=== PATIENT | female | born 1980 | race Caucasian/White ===

== ENCOUNTER 2023-04-16 11:24 | Outpatient (CLI) | payer OTHER, SELFPAY ==
--- NOTE | 2023-04-16 11:30 | CRLHL7_ITS ---
For Patients: As a result of the Century Cures Act, medical imaging exams and procedure reports are released immediately into your electronic medical record. You may view this report before your referring provider. If you have questions, please contact your health care provider. INDICATION: position, placenta location and palpable mass in pelvis. COMPARISON: none TECHNIQUE: Real time reagan scale imaging of the fetus was performed. FINDINGS: Sonographic imaging demonstrates a single living intrauterine gestation. Fetus demonstrates a regular cardiac rate of 139 beats per minute. Fetus has a den breech position. The placenta lies anterior left. Amniotic fluid volume appears normal. Single deepest vertical pocket: 6.5 cm. Multiple uterine fibroids are present measuring 4.2 x 2.3 x 4.1 cm, 9.5 x 8.9 x 8.6 cm and 10.0 x 5.3 x 7.1 cm. Central areas of necrosis/fluid are present. The cervix is not visualized. Patient declined biometrics. IMPRESSION: Multiple uterine fibroids are present measuring up to 10.0 cm. position is den breech. Placenta is left anterior. Dictated by Kobe Bhatt MD @ 04/17/2023 1:16:52 PM (Electronically Signed)
== END 2023-04-16 11:25 | disposition home or self-care (01) ==
LOC: US 11:24
PROVIDERS: PCP Physician Assistant Medical; Visit Provider Advanced Practice Midwife
DX: O34.10 Maternal care for benign tumor of corpus uteri, unspecified trimester (principal); D25.9 Leiomyoma of uterus, unspecified
CPT/HCPCS: 76815

== ENCOUNTER 2023-06-12 14:24 | Outpatient (CLI) | payer OTHER, SELFPAY | END 2023-06-12 14:25 | disposition home or self-care (01) | LOC: NFLDREF 14:26 | PROVIDERS: PCP Physician Assistant Medical; Visit Provider Registered Nurse | DX: Z13.9 Encounter for screening, unspecified (principal); Z34.93 Encounter for supervision of normal pregnancy, unspecified, third trimester; Z3A.33 33 weeks gestation of pregnancy | CPT/HCPCS: 82728 ==

== ENCOUNTER 2023-06-25 14:56 | Outpatient (CLI) | payer OTHER, SELFPAY ==
[2023-06-26 23:10] LABS: Strep B DNA Probe Negative (Negative); Strep B Susceptibility Needed? No
== END 2023-06-25 14:57 | disposition home or self-care (01) ==
LOC: NFLDREF 14:56
PROVIDERS: PCP Physician Assistant Medical; Visit Provider Obstetrics & Gynecology
DX: O09.523 Supervision of elderly multigravida, third trimester (principal); O36.63X0 Maternal care for excessive fetal growth, third trimester, not applicable or unspecified; Z3A.30 30 weeks gestation of pregnancy
CPT/HCPCS: 76816; 76819; 87081; 87653

== ENCOUNTER 2023-07-03 15:20 | Outpatient (CLI) | payer OTHER, SELFPAY | END 2023-07-03 15:21 | disposition home or self-care (01) | PROVIDERS: PCP Physician Assistant Medical; Visit Provider Obstetrics & Gynecology | DX: Z34.93 Encounter for supervision of normal pregnancy, unspecified, third trimester (principal); Z3A.36 36 weeks gestation of pregnancy | CPT/HCPCS: 82570; 84156 ==

== ENCOUNTER 2023-07-31 15:15 | Outpatient (CLI) | payer OTHER, SELFPAY ==
[2023-08-01 12:28] LABS: Strep B DNA Probe Negative (Negative); Strep B Susceptibility Needed? No
== END 2023-07-31 15:16 | disposition home or self-care (01) ==
LOC: NFLDREF 15:15
PROVIDERS: PCP Physician Assistant Medical; Visit Provider Obstetrics & Gynecology
DX: Z34.90 Encounter for supervision of normal pregnancy, unspecified, unspecified trimester (principal)
CPT/HCPCS: 76815; 87081; 87653

== ENCOUNTER 2023-08-03 06:47 | Outpatient (CLI) | payer OTHER, SELFPAY ==
[2023-08-03] VITALS (8 sets, daily range): BP systolic 117; BP diastolic 66; PULSE 64–71; RESP 16; TEMP 36.9; O2SAT 97–100; BMI 28.3
[2023-08-03 08:53] LABS: Basophils Percent Auto 0.1 % (0.0-3.0); Eosinophils Percent Auto 0.1 % (0.0-7.0); Hematocrit 37.1 % (33.0-51.0); Hemoglobin* 12.3 gm/dL (12.0-16.0); Immature Granulocytes Pct Auto 0.3 %; Lymphocytes Percent Auto 12.5 % (20-44); Mean Corpuscular HGB Conc 33 gm/dL (32-36); Mean Corpuscular Hemoglobin 31 pg (26-34); Mean Corpuscular Volume 93 fL (80-100); Monocytes Percent Auto 4.1 % (0.0-11.0); Neutrophils Percent Auto 82.9 % (42.0-72.0); Platelet Count* 171 K/uL (140-440); RDW Coefficient of Variation % 13.9 % (11.5-15.5); Red Blood Count 3.98 m/uL (4.00-5.20); White Blood Count* 12.91 K/uL (4.50-11.00)
[2023-08-03 08:59] LABS: Slide Review Reflex No
--- NOTE | 2023-08-06 10:35 | PC.OBNST ---
NST Note NST Note Start: 08/06/23 10:32 Freq: Status: Active Protocol: Document 08/03/23 10:33 IWONA (Rec: 08/06/23 10:34 IWONA [id number]) NST Note 1 Para (# of births) 0 EDC 07/26/23 Gestational Age In Weeks & Days 41 Weeks & 4 Days High Risk Factors Advanced Maternal Age Patient Presented with Complaint(s) of Contractions/cramping Reactive Yes Appropriate for Gestational Age Yes RN Zayda Peterson RN Date 08/03/23 Reactive Yes Appropriate for Gestational Age Yes BENJI Ferrara RN Date 08/03/23 OB NST charge Yes Complete NST Note via Write Note Yes The provider's electronic signature indicates the NST is reactive/appropriate for gestational age. *Note to provider: If an addendum is required, open the patient's chart and click on the note under the Nurse/Allied Health tab.
== END 2023-08-03 09:16 | disposition home or self-care (01) ==
LOC: OB OUT 06:47 → OB 06:48
PROVIDERS: Obstetrics & Gynecology; PCP Physician Assistant Medical; Visit Provider Obstetrics & Gynecology
DX: Z34.93 Encounter for supervision of normal pregnancy, unspecified, third trimester (principal); O09.523 Supervision of elderly multigravida, third trimester; Z3A.41 41 weeks gestation of pregnancy
CPT/HCPCS: 36415; 59025; 84112; 85025; 86850; 86900; 86901; 99213

== ENCOUNTER 2023-08-03 15:30 | Inpatient (IN) | payer OTHER, SELFPAY ==
[2023-08-03 15:22] VITALS: BP 139/69; PULSE 214; PULSE 77; O2SAT 81
[2023-08-03 15:30] VITALS: PULSE 65; O2SAT 97
--- NOTE | 2023-08-03 15:36 | P.LDBA_ITS ---
Subjective History of Present Illness Time Seen by Provider: 15:36 Date Seen: 08/03/23 Narrative: Krista is being admitted to Labor and Delivery for spontaneous onset of labor. She states that she was awaken from sleep at 1:00 a.m. today with contractions. She was evaluated in triage at 9:00 a.m. and was 4 cm dilated at that time and decided to go home and returned approximately 3:00 p.m. today with more painful contractions associated with nausea and vomiting. She is a 42 year old at 41 weeks 1 day gestation. Her full history and physical was dictated by Dr. Andreea Rodriguez on 07/03/2023. Please see this for details. hemorrhage control plan: Patient desires TXA 1st followed by Fabienne then Pitocin, Cytotec and Hemabate in that order. She has 2 units of blood available. She was type and screen this morning when she was in triage and her blood type is O negative her antibody screen was negative. Spontaneous rupture of membranes took place at approximately 3:00 p.m. just after she arrived on the unit. Specific Issues/Plans Bambi Plans to do directed donation for blood through [facility] - form completed 06/19. 2 units available. Patient needs type and screen on admission. H&P done 07/03/[address] Rodriguez. Patient requests to take home placenta following delivery. Patient aware that she needs to provide her own transport cooler and container. 1. Uterine fibroids * RLQ- 10 x 5.3 x 7.1, lower midline- 9.5 x 8.9 x 8.6, LLQ- 4.2 x 2.3 x 4.1 * Recommended MFM consult and hospital * [facility] recommendation repeat US in 6-8 weeks * Discussed increased risk of malpresentation, C/S for arrest of dilation/descent, possible classical C/S, hysterectomy, midline vertical skin incision and PPH in the setting of fibroids. 2. Rh negative * Declined Rhogam at 28 weeks * Discussed at visit on 05/14/2023. Patient would like more information about RhoGAM, including whether not it contains preservative. She would like an ingredient list, if possible. She is amenable to the injection once she has received this information. * 06/05/23: Patient still considering * 06/12/23: Declining rhogam 3. Breech at 25.4 wks-transverse at Level II US * Repeat US at 36 weeks gestation: Vertex, EFW 3338 g or 7 lb 6 oz (96%), SDP 6.2 cm, BPD 96.7%, HC > 97%, AC > 97%, FL 29%, BPP 8/8, fibroids: 8.5 x 6.7 x 5.9 cm, 7.4 x 3.6 x 6.6 cm, and 4 x 2.1 x 3.3 cm. 4. AMA * Level II US and echo normal * Growth at 32-36 weeks: Patient declines 32-weeks ultrasound * testing starting at 32-34 wks and delivery at 39 weeks per [facility] recommendations. Patient declines antepartum testing. Prefers to do daily kick counts and weekly follow up appointments with doptone assessment of FHR. * Affirmed recommendation for IOL at 39 weeks in the setting of AMA (and additional logistics considerations including increased risk of C/s and PPH with fibroids) on 06/19 - consent form provided for them to review, please reassess at next visit * Declining 39 week IOL at this time, she wishes to at least make it to 40 weeks expectantly. Risk of stillbirth with AMA data again reviewed. She and partner will consider further what end point they would be comfortable with IOL. 5. hgb 11.6, ferritin 6.8 at 34 weeks: rec qod iron supplement 6. Desires direct blood donation * 2 u of pRBC to be prepared * WOULD consent to standard blood products in event of massive hemorrhage OB Labs: ? Blood type: O-, antibody screen negative. ? Hgb: 12.7 ? Platelets: 217 ? Rubella: Immune ? Varicella: Immune RPR: non-reactive ? HBsAg: non-reactive ? Hep C: negative HIV: negative ? UC: negative GC/Chlamydia: negative/negative ? Pap due : negative previously? Genetic screening: declined ? IMAGING: ?No previous imaging OB - Problem Based A/P Additional Plan (1) Uterine fibroids affecting : Status: Acute Plan 1. Type and screen, CBC obtained. 2. Blood type O negative, antibody screen negative 3. Patient is aware of risk of hemorrhage due to uterine fibroids and large for gestational age fetus. 4. GBS negative. 5. Patient gave consent for IV access. OB Exam Physical Exam Vital signs: Pulse BP Pulse Ox 77 139/69 97 08/03/23 15:22 08/03/23 15:22 08/03/23 15:30 Narrative: GENERAL APPEARANCE: Pleasant, , well-groomed woman in no acute distress. VITAL SIGNS: as noted in nursing notes HEAD: Normocephalic, atraumatic. THYROID: no masses, nodularity, tenderness or enlargement. LUNGS: Clear to auscultation bilaterally without wheezes, rales or rhonchi. HEART: Regular rate and rhythm with normal S1 and S2. No gallop, rub or murmur. ABDOMEN: Gravid. Soft, nontender, nondistended, with normal bowels sounds throughout. FUNDAL HEIGHT: [] cm EFM: Baseline 130s. Moderate variability, multiple accelerations. No decelerations. Reactive. Category 1. PRESENTATION: Vertex by Taj's maneuvers and sterile vaginal exam SVE: 7 cm/ 100 %/ +1 to +2/soft/anterior. EXTREMITIES: No cyanosis, clubbing, or edema. No varicosities. NEUROLOGIC: Normal gait and balance. Normal deep tendon reflexes at bilateral patella 2+/2, equal without clonus. PSYCHIATRIC: alert and oriented x3. Normal speech pattern, eye contact and affect. SKIN: Warm, dry, and well perfused. Good turgor. No lesions, nodules or rashes.
[2023-08-03 15:55] VITALS: BMI 28.3
--- NOTE | 2023-08-03 20:23 | PM.OBPNL ---
Subjective Time Seen by Provider: 20: Date Seen: 08/03/23 Narrative: Subjective: Patient is comfortable w/ contractions. Continues to decline Pitocin because she is worried will make the baby's heart rate go down. Reviewed that this is a very uncommon risk of Pitocin because we have strict protocols for turning Pitocin down or off for tachy systole. She wants to try an acupuncture pressure point on her pinky toes to see if this works. Vital signs: Per electronic medical record. EFM: Baseline 130s, multiple accelerations, sporadic variable decelerations, moderate variability, reactive. Category 2. [place]: Contractions every 3-10 minutes. SVE: 7 cm/100 %/+2. Bedside ultrasound presentation is consistent with left occiput transverse. Assessment: 42-year-old 1 para 0 at 41 weeks 1 days gestation spontaneous labor now with dysfunctional labor pattern and arrest of dilation for greater than 5 hours. Plan: 1. Status post manual expression of colostrum, inversion and side lying release. 2. Encouraged Pitocin augmentation which the patient continues to decline. Objective Vital Signs: Last Vital Signs Pulse 77 08/03/23 15:22 BP 139/69 08/03/23 15:22 Pulse Ox 97 08/03/23 15:30
[2023-08-03 21:34] VITALS: BP 135/78; PULSE 79
[2023-08-03] MEDS: LACTATED RINGERS 1000 ML 1,000 ML 125 ML IV (22:10)
[2023-08-03] MEDS: OXYTOCIN 30 unit/500 ML in NS 30 UNIT/500 ML BAG IVPB (22:12)
[2023-08-04] VITALS (11 sets, daily range): BP systolic 110–154; BP diastolic 65–88; PULSE 77–93; RESP 16–18; TEMP 36.5–36.9; O2SAT 98–99
--- NOTE | 2023-08-04 02:59 | W.PM.VAGD1_ITS ---
Procedure Delivery date: 08/04/23 Procedure Done: Global Procedure Details: Krista is a 42 year-old G 1 P 0 now my admitted on 08/03/2023 at 3:00 p.m. at 41 Weeks, 1 Days gestation for spontaneous onset of labor. SROM occurred at 3:00 p.m. on 08/03/2023 with clear fluid. Labor Analgesia: None Pitocin: Yes Labor onset: 08/03/2023 at 4:00 p.m.. Complete: 08/04/2023 at 1:40 a.m.. Pushin08/04/2023 at 1:41 a.m.. heart tones during second stage were: Category 2, reassuring with moderate variability and early decelerations with immediate return to the baseline with contractions. At 2:31 a.m. a viable male delivered in vertex direct OA presentation over second-degree perineal laceration via spontaneous vaginal delivery. The infant was placed on maternal abdomen. Cord was clamped and cut after a several minute delay as the patient desired the cord to complete pulsating prior to clamping and cutting. Nose and mouth were bulb suctioned. weight James. 9 at 1 minute and 9 at 5 minutes. Shoulder dystocia: No. Nuchal cord: No. Terminal meconium noted at the time of delivery. Placenta delivered spontaneously and complete at 2:43 a.m. with a 3 vessel cord. Laceration(s): Second-degree perineal. Repaired using 3-0 Vicryl suture in the usual manner. Blood loss: 175 mL. Blood loss measurement type: Quantitative Sponge and needles counts are correct. Specimen: None: Patient desired to take the placenta home with her Mother and infant were stable after delivery. 's name: Is pen The patient is planning on breast feeding. Events: Labor Augmentation and AMA Intrapartal Events: Labor Augmentation Delivery augmentation: pitocin Delivery monitor: external FHT and external uterine Route of delivery: Laceration description: Perineal - 2nd Degree Delivery repair: Vicryl Estimated blood loss (mL): 175 Anesthesia type: None Disposition: floor [place] Gender: Male presentation: vertex Placental Delivery Description: Spontaneous Cord Description: 3 Vessels
--- NOTE | 2023-08-04 12:57 | PM.OBDSVD1 ---
DS: Providers Provider Time Seen by Provider: 12:57 Date Seen: 08/04/23 Date of admission: 08/03/23 15:30 Primary care physician: Jeffy Carbajal PA-C Admitting Clinician: Susan Lynn MD Attending Physician on discharge: Susan Lynn MD Date of Discharge: 08/04/23 DS: Diagnosis Discharge Diagnosis (1) (normal spontaneous vaginal delivery): Status: Acute Problem details: Male. Apgars 9/9. Weight 8#15oz. Exam Narrative: Exam Narrative: GENERAL APPEARANCE: Pleasant, , well-groomed woman in no acute distress. VITAL SIGNS: as noted in nursing notes HEAD: Normocephalic, atraumatic. THYROID: no masses, nodularity, tenderness or enlargement. LUNGS: Clear to auscultation bilaterally without wheezes, rales or rhonchi. HEART: Regular rate and rhythm with normal S1 and S2. No gallop, rub or murmur. ABDOMEN: Fundus firm 1 cm below the umbilicus in the midline Soft, nontender, nondistended, with normal bowels sounds throughout. EXTREMITIES: No cyanosis, clubbing, or edema. No varicosities. NEUROLOGIC: Normal gait and balance. Normal deep tendon reflexes at bilateral patella 2+/2, equal without clonus. PSYCHIATRIC: alert and oriented x3. Normal speech pattern, eye contact and affect. SKIN: Warm, dry, and well perfused. Good turgor. No lesions, nodules or rashes. Const: Vital Signs, click to edit/add: Vital Signs - 24 hr 08/03/23 15:22 08/03/23 15:30 08/03/23 21:34 Temperature Pulse Rate 77 79 Pulse Rate [Pulse Oximeter] Respiratory Rate Blood Pressure 139/69 135/78 Blood Pressure [Ri ght Arm] Pulse Oximetry 81 L 97 Oxygen Delivery Me thod 08/04/23 01:25 08/04/23 02:48 08/04/23 03:03 Temperature Pulse Rate 85 89 79 Pulse Rate [Pulse Oximeter] Respiratory Rate Blood Pressure 154/87 H 141/76 H 142/84 H Blood Pressure [Ri ght Arm] Pulse Oximetry Oxygen Delivery Me thod 08/04/23 03:17 08/04/23 03:32 08/04/23 03:48 Temperature Pulse Rate 78 77 81 Pulse Rate [Pulse Oximeter] Respiratory Rate Blood Pressure 134/81 137/88 145/83 H Blood Pressure [Ri ght Arm] Pulse Oximetry Oxygen Delivery Me thod 08/04/23 04:03 08/04/23 04:18 08/04/23 04:33 Temperature Pulse Rate 77 84 88 Pulse Rate [Pulse Oximeter] Respiratory Rate Blood Pressure 150/82 H 140/77 H 122/65 Blood Pressure [Ri ght Arm] Pulse Oximetry Oxygen Delivery Me thod 08/04/23 07:30 08/04/23 12:00 Temperature 98.5 F 97.7 F Pulse Rate Pulse Rate [Pulse Oximeter] 93 80 Respiratory Rate 16 18 Blood Pressure Blood Pressure [Ri ght Arm] 111/71 110/69 Pulse Oximetry 98 99 Oxygen Delivery Me thod Room Air Room Air OB - DS: Summary Hospital Course Hospital Course: Deloris is a 42 year old G 1 P 0 now 1 at 41 weeks 2 days gestation that was admitted to the Center on 08/03/23 for spontaneous onset of labor. She had an uncomplicated vaginal delivery. She delivered a viable male . She is breath feeding. the patient has done well. She requested to be discharged prior to 24 hours . She is breast-feeding without difficulty, tolerating regular diet, passing flatus and having light lochia. Peripartum Data Infant delivery method: Vaginal Laceration description: Perineal - 2nd Degree complications: none [place] Infant Gender: Male Discharge Plan: Home Time Spent with Patient Time attestation: Total time spent providing and/or coordinating discharge services: Discharge Plan Discharge Disposition: Home, Self-Care Date of Admission: 08/03/23 15:30 Attending Provider on Discharge: Susan Lynn Primary Care Provider: Jeffy Carbajal Condition: Stable Anticipated Discharge Date/Time: 08/04/23 15:00 Discharge Medications: New docusate sodium 100 mg Capsule 100 mg PO BID PRNQty: 100 0RF ibuprofen 600 mg Tablet 600 mg PO Q6H PRNQty: 30 0RF Continued multivitamin Tablet 1 tab PO QAM cholecalciferol (vitamin D3) 50 mcg (2,000 unit) capsule 50 mcg PO QDAY magnesium 200 mg tablet 200 mg PO QDAY Discharge Orders: Discharge Order (Routine); Ordered 08/04/23 Ordered By: Susan Lynn Patient Education: Bleeding (DC) Additional Instructions: ACTIVITY RESTRICTIONS: Nothing vaginally for 6 weeks: no tampons/intercourse Off of work/school for a minimum of 6 weeks Symptoms to report to doctor: -Bleeding that saturates more than one pad per hour ?-Passing clots larger than the size of a golf ball ?-Pain not relieved by prescribed medication ?-Fever above 100.4 degrees Fahrenheit ?-A foul vaginal odor ?-Difficulty in emotions, mood and functions ?-Thoughts of hurting yourself and/or ?-Painful, reddened area in your breast ?-Any drainage, redness or tenderness in your IV/epidural site ?-Severe headache that doesn't improve after taking medications ?-Changes in vision, including temporary loss of vision, blurred vision, and/or light sensitivity ?-Upper abdominal pain (usually under ribs on the right side) ?-Decrease in urination or painful, frequent urinating ?-Chest pain ?-Shortness of breath ?-Tenderness or pain with redness and/swelling in the calf(s) of your leg Follow-up: 1. Optional: [facility] 2 [facility] to screen for anxiety/depression, discuss contraceptive options and answer questions regarding infant care. 2. A 6 week visit for an annual physical exam. consultation services are available to all mothers and babies for the first year after delivery.? To make an appointment, please call [phone]. Discharge Diet: Regular Follow Up Appointments: Jeffy Carbajal PA-C [Primary Care Provider] - [facility] [Provider Group] Susan Lynn MD [Staff Physician] - Forms: [facility] Info Instructions
== END 2023-08-04 15:20 | disposition home or self-care (01) | DRG 807 ==
LOC: OB OUT 08-04 00:21 → OB 08-04 13:00
PROVIDERS: Admitting Provider Obstetrics & Gynecology; PCP Physician Assistant Medical; Visit Provider Obstetrics & Gynecology
DX: O34.13 Maternal care for benign tumor of corpus uteri, third trimester (principal); Z37.0 Single live birth; D25.9 Leiomyoma of uterus, unspecified; O70.1 Second degree perineal laceration during delivery; O48.0 Post-term pregnancy; Z67.41 Type O blood, Rh negative; Z53.29 Procedure and treatment not carried out because of patient's decision for other reasons; Z3A.41 41 weeks gestation of pregnancy
CPT/HCPCS: 36415; 36430; 85461; 86850; 86900; 86901; 86922; 99213; G0463; A9270; J2791; J7120

== ENCOUNTER 2024-02-10 11:27 | Outpatient (CLI) | payer OTHER, SELFPAY ==
--- OUTSIDE RECORDS SUMMARY | 2024-02-10 11:29 | XMS_ITS | Clinical Summary ---
Author Organization [employer] [facility] Address [place], [place] [address] Care Team Providers Care Air Table Operator Name Role Phone [facility] Primary Care Provider + Allergies Active Allergy Reactions Criticality Noted Date Comments Venom-Honey Bee Edema 03/10/2019 Unlisted Allergen (Include Detail In Comments) Hives 02/11/2017 Reaction to dental anesthesia, name unknown Medications Medication Sig Dispensed Refills Start Date End Date Status Rzvaw-4-XVI-EPA-Fish Oil (FISH OIL) 1,000 mg (120 mg-180 mg) cap Take by mouth. 0 02/11/2017 Active multivitamin capsule Take 1 capsule by mouth once daily. 0 02/11/2017 Active cholecalciferol, vitamin D3, (VITAMIN D3 ORAL) Take by mouth. Active Active Problems Problem Noted Date Diagnosed Date Advanced maternal age, primi in third trimester, antepartum 05/01/2023 Advanced maternal age, primigravida, third trime ster 05/01/2023 Rh negative status during pr egnancy in third trimester, antepartum 05/01/2023 Uterine fibroids affecting , third trim baylee 05/01/2023 MPP High-risk supervision 04/24/2023 Overview: MPP ULTRASOUND/TESTING PATIENT MPP CONSULT ON 04/30/23 Support person name: Bambi Linseed Cake Trimmer: Lyla ULTRASOUND TYPE: L2 REASON FOR VISIT: Consult for Vaginal vs C/S delivery, uterine fibroids NEXT VISIT ALERTS: Ask pt if she has had labs done. [facility] saw her for one visit on 04/16/23 and did not do them. Possibly done with CNM . NURSING VISIT ALERT: Create and link episode at day of visit. Document in Dating section. [id number] Final HARLEY by LMP LMP Date: 10/19/22 HARLEY: 07/26/23 Early US: Date: declined US and doptones , prefers fetoscope : PrePregnancy Weight: Height: 5' 11 BMI: 24.4 PLANS & FUTURE APPOINTMENTS: ULTRASOUND/GROWTH PLAN: - Through: - Growth: Next TESTING PLAN: - Testing: Through DELIVERY PLAN: - Scheduled delivery: - Preferred delivery location: PRIMARY DIAGNOSIS: 42 y.o. No obstetric history on file. Estimated Date of Delivery: None noted. MATERNAL AMA-42 care with initally with home survey engineer (Treasured )- home vs hospital . Has also been seen at [facility] once on 04/16/23 Uterine fibroids - multiple measuring up to 10 cm RH negative- not planning rhogam PREVIOUS ULTRASOUNDS: (PCP) 04/16/23 US in [place] uterine fibroids measuring up to 10 cm, no measurements, breech ECHO: REFERRING PHYSICIAN/PHONE/LAST UPDATE: Sebas Yan ARMATURE VARNISHER, Primary MD approves scheduling of recommended ultrasounds/testing: Yes SPECIALISTS/CONSULTS: Include: Specialty MD Clinic Name Phone# [place] and ADDED TO PATIENT CARE TEAM Yes GENETICS: Declines CARE COORDINATION: PERTINENT LABS: Labs reviewed? Normal? Blood type: No results found in past 5 years Antibody screen: No results found in past 5 years Non-[facility] labs need to be entered in EPIC? Yes PERTINENT MEDS: PROCEDURES: IF FGR <10% or EFW <2000 grams: Add FGRPCOM PLAN OF CARE: Original and updated POC Family history of diabetes mellitus 03/10/2019 Family History Medical History Relation Name Comments Good Health Brother x 2 Diabetes Father DM II Heart attack Father Unknown Maternal Grandfather Unknown Maternal Grandmother Good Health Mother Emphysema Paternal Grandfather Macular degeneration Paternal Grandmother Unknown Paternal Grandmother Relation Name Status Comments Brother x 2 Alive Father Alive Maternal Grandfather Maternal Grandmother Mother Alive Paternal Grandfather Paternal Grandmother Social History Tobacco Use Types Packs/Day Years Used Date Smoking Tobacco: Never Smokeless Tobacco: Never Tobacco Cessation:Counseling Given: No Alcohol Use Standard Drinks/Week Comments Not Currently 0 (1 standard drink = 0.6 oz pur e alcohol) rarely - maybe 1-2 x yealy PHQ-2 Answer Date Recorded PHQ-2 TOTAL SCORE 0 05/30/2023 Social Connections Answer Date Recorded Frequency of Communication with Friends and Fami ly Not on file 08/05/2021 Financial Resource Strain Answer Date R ecorded Difficulty of Paying Living Expenses Not on file 08/05/2021 Difficulty of Paying Living Expenses Not on file 08/05/2021 Sex and Gender Information Value Date Recorded Sex Assigned at Not on file Gender Identity Not on file Sexual Orientation Not on file Obstetrics History Para Term AB IAB SAB Ectopic Multiple Livin g Live Births 1 0 0 0 0 0 0 0 0 0 0 Date Outcome GA Total Labor Labor/2nd/3rd Weight Sex Type Anes PTL Vivian A1 A5 Name Clin Last Filed Vital Signs Vital Sign Reading Time Taken Comments Blood Pressure 118/70 05/30/2023 11:48 AM CDT Pulse 85 05/30/2023 11:48 AM CDT Temperature 35.9 ??C (96.7 ??F) 05/30/2023 11:48 AM C DT Respiratory Rate 16 05/30/2023 11:48 AM CDT Oxygen Saturation 99% 05/30/2023 11:48 AM CDT Inhaled Oxygen Concentration - - Weight 87.6 kg (193 lb 3.2 oz) 05/30/2023 11:48 AM CDT Height 180.3 cm (5' 11) 05/30/2023 11:48 AM CDT Body Mass Index 26.95 05/30/2023 11:48 AM CDT Plan of Treatment Health Maintenance Due Date Last Done Comments Tdap 1993 HIV for age 15-65 1997 Hepatitis C screening for age 18-79 2000 Tetanus booster 2002 Pap test for age 21-65 11/11/2003 Influenza for age 9-49 04/05/2024 BMI (ht and wt on same day) for age 18+ 05/30/2024 05/30/2023, 03/10/2019, 02/11/2017 COVID-19 vaccine series ( season) 2024 Postponed from 04/05/2023 (Other) Depression screening for age 12+ 05/30/2024 05/30/2023, 03/31/2020, 03/11/2019, Additional history exists Pneumococcal series for age 6-64 Aged Out No longer eligible based on patient's age to complete this topic Care Teams Air Table Operator Relationship Specialty Start Date End Date [facility] [address] [place] [address] PCP - General 02/11/17
== END 2024-02-10 11:28 | disposition home or self-care (01) ==
PROVIDERS: PCP Physician Assistant Medical; Visit Provider Obstetrics & Gynecology
DX: R63.5 Abnormal weight gain (principal)
CPT/HCPCS: 83520; 84439; 84443; 84481

== ENCOUNTER 2024-07-21 11:02 | Outpatient (CLI) | payer OTHER, SELFPAY | END 2024-07-21 11:03 | disposition home or self-care (01) | PROVIDERS: PCP Physician Assistant Medical; Visit Provider Obstetrics & Gynecology | DX: Z34.91 Encounter for supervision of normal pregnancy, unspecified, first trimester (principal); Z3A.11 11 weeks gestation of pregnancy | CPT/HCPCS: 86850; 87086 ==

== ENCOUNTER 2024-11-27 09:20 | Outpatient (CLI) | payer OTHER, SELFPAY ==
--- NOTE | 2024-11-27 09:15 | CRLHL7_ITS ---
For Patients: As a result of the Century Cures Act, medical imaging exams and procedure reports are released immediately into your electronic medical record. You may view this report before your referring provider. If you have questions, please contact your health care provider. OB ULTRASOUND HARLEY by LMP or US: 02/08/2025. GA: 29 w, 4 d. Single. Comparison: 10/09/2024. INDICATION: AMA. TECHNIQUE: Real time grayscale imaging of the fetus was performed. Transabdominal. CERVIX: Not visualized. POSITIONING: Breech. AMNIOTIC FLUID: 3.8 cm. SDP (N: greater than 2 x 1 cm) PLACENTA: Technique: Transabdominal. PLACENTA POSITION: Posterior, left wall. DOPPLER: heart rate: 159 bpm. BIOMETRY: BPD: 7.8 cm. 31 w, 1 d, 83.6 percent. HC: 28.0 cm. 30 w, 5 d, 49.1 percent. AC: 23.9 cm. 28 w, 1 d, 10.5 percent. FL: 5.2 cm. 27 w, 5 d, 3.5 percent. FL/AC ratio: 21.8 percent. HC/AC ratio: 1.2. EFW: 1232 g. Weight: 2 lbs, 11 oz. age by this US: 29 w, 3 d. HARLEY by this US: 02/09/2025. Percentile by HARLEY: 9.3 percent. IMPRESSION: 1. Sonographic gestational age 29 weeks 3 days and sonographic due date 02/09/2025. Good correlation with dates. 2. Estimated weight 9th percentile. Abdominal circumference 11th percentile. Femur length 4th percentile. 3. Patient declined umbilical artery Doppler evaluation. Kobe Bhatt M.D. Diagnostic Radiologist [email or web address] HUA/randy padilla/Dictated by: Kobe Bhatt MD @ 11/27/2024 10:14:00 AM (Electronically Signed)
--- NOTE | 2024-11-27 11:30 | CRLHL7_ITS ---
For Patients: As a result of the Cures Act, medical imaging exams and procedure reports are released immediately into your electronic medical record. You may view this report before your referring provider. If you have questions, please contact your health care provider. OB ULTRASOUND HARLEY by LMP or US: 02/08/2025. GA: 29 w, 4 d. Single. Comparison: 11/27/2024. INDICATION: Poly/IUGR. TECHNIQUE: Real time grayscale imaging of the fetus was performed. Transabdominal. CERVIX: Not visualized. POSITIONING: Vertex. AMNIOTIC FLUID: 6.7 cm. SDP (N: greater than 2 x 1 cm) PLACENTA: Technique: Transabdominal. PLACENTA POSITION: Posterior, left wall. DOPPLER: heart rate: 134 bpm. Umbilical artery: 2.8 S/D. 28-34 w = less than 4.0. IMPRESSION: Duplex Doppler ultrasound of the umbilical artery performed. Umbilical artery S/D ratio 2.8. Kobe Bhatt M.D. Diagnostic Radiologist [email or web address] HUA/randy padilla/Dictated by: Kobe Bhatt MD @ 11/27/2024 12:25:00 PM (Electronically Signed)
== END 2024-11-27 09:21 | disposition home or self-care (01) ==
LOC: US 09:20
PROVIDERS: PCP Physician Assistant Medical; Visit Provider Obstetrics & Gynecology
DX: O36.5930 Maternal care for other known or suspected poor fetal growth, third trimester, not applicable or unspecified (principal); O09.523 Supervision of elderly multigravida, third trimester; O40.3XX0 Polyhydramnios, third trimester, not applicable or unspecified; Z3A.29 29 weeks gestation of pregnancy
CPT/HCPCS: 76815; 76816; 76820

== ENCOUNTER 2025-01-26 15:06 | Outpatient (CLI) | payer OTHER, SELFPAY ==
[2025-01-27 16:53] LABS: Strep B Susceptibility Needed? No
[2025-01-27 17:33] LABS: Strep B DNA Probe Negative (Negative)
== END 2025-01-26 15:07 | disposition home or self-care (01) ==
LOC: NFLDREF 15:07
PROVIDERS: PCP Physician Assistant Medical; Visit Provider Obstetrics & Gynecology
DX: Z34.93 Encounter for supervision of normal pregnancy, unspecified, third trimester (principal); Z3A.38 38 weeks gestation of pregnancy
CPT/HCPCS: 87081; 87653

== ENCOUNTER 2025-02-16 13:55 | Outpatient (CLI) | payer OTHER, SELFPAY ==
--- NOTE | 2025-02-16 13:45 | CRLHL7_ITS ---
For Patients: As a result of the Century Cures Act, medical imaging exams and procedure reports are released immediately into your electronic medical record. You may view this report before your referring provider. If you have questions, please contact your health care provider. OB ULTRASOUND LMT WITH UA Clinical History: HARLEY by LMP: 02/08/2025. GA: 41 w, 1 d. Single. Comparison: 11/27/2024, 11/27/2024, 10/09/2024. INDICATION: Post dates. TECHNIQUE: Real time reagan scale imaging of the fetus was performed. Transabdominal imaging performed. Umbilical artery spectral Doppler evaluation performed. CERVIX: Not visualized. POSITIONING: Vertex. AMNIOTIC FLUID: 17.9 cm. AGNIESZKA. 5.8 cm SDP (N: greater than 2 x 1 cm) PLACENTA: Technique: Transabdominal. PLACENTA POSITION: Posterior. DOPPLER: heart rate: 142 bpm. Umbilical artery: 2.2 S/D. Greater than 34 w = less than 3.5. IMPRESSION: 1. Amniotic fluid single deepest pocket 5.8 cm, AGNIESZKA 17.9 cm. 2. Spectral Doppler evaluation of the umbilical artery performed. S/D ratio 2.2. Kobe Bhatt M.D. Diagnostic Radiologist [email or web address] SP/Dictated by: Kobe Bhatt MD @ 02/16/2025 3:00:00 PM (Electronically Signed)
== END 2025-02-16 13:56 | disposition home or self-care (01) ==
LOC: US 13:56
PROVIDERS: PCP Physician Assistant Medical; Visit Provider Obstetrics & Gynecology
DX: O48.0 Post-term pregnancy (principal); Z3A.41 41 weeks gestation of pregnancy
CPT/HCPCS: 76815; 76820

== ENCOUNTER 2025-02-19 08:40 | Inpatient (IN) | payer OTHER, SELFPAY ==
[2025-02-19] VITALS (12 sets, daily range): BP systolic 117–132; BP diastolic 60–86; PULSE 65–78; RESP 18; TEMP 36.7; O2SAT 79–97; BMI 30.8
--- NOTE | 2025-02-19 08:46 | P.LDBA_ITS ---
Subjective History of Present Illness Narrative: Patient is being admitted to Labor and Delivery for labor. She is a 44 year old at 41 weeks, 4 days gestation. Her full history and physical was dictated by Dr. Rodriguez on 01/27/2025. Please see this for details. Specific Issues/Plans Bambi, son Phil Baby: Elton! H&P 01/27/[address] Rodriguez. # Intrauterine growth restriction diagnosed on 11/27/2024, EFW 9.3% on 11/27/24.(resolved on 12/16) * Recommend referral to MFM: referral entered on 11/30/24: See below for results, EFW 19% * Recommend weekly Dopplers x2, if stable findings, UA Doppler q.2 weeks. Patient declines, agrees to return in two weeks for NST and UA Dopplers. No longer needed as FGR resolved. * Recommend growth ultrasound Q 3-4 weeks * Delivery recommended at 39-39.6 weeks. Patient declines IOL at 39-39.6 weeks. # Uterine fibroids # Rh negative * Will likely decline Rhogam at 28 weeks * Would like to do unity blood typing: Fetus is Rh negative, RhoGAM not needed # AMA * Consider NIPT: Declined * Level 2 US: 10/09/2024. Limited anatomy assessment performed at patient's request, no anomalies identified. EFW 13%, AC 33%, mild polyhydramnios (MVP 8.9 cm), placenta left lateral without previa, three-vessel cord, uterine fibroids: 4.9 x 4.1 x 4.4 cm right lateral wall lateral to cervix, and 7.1 x 4.9 x 4.2 cm right lateral wall. Neither fibroid appeared to be obstructive at this time. Recommend repeat ultrasound in 3-4 weeks to re-evaluate growth and amniotic fluid. Recommend evaluation for GDM at 24-25 weeks given finding of mild polyhydramnios. * echo: Declined. * Growth ultrasound: 11/27/2024 EFW 9%, AC 11%, SDP 3.8 cm * Growth US w/ MFM: 12/16/24 see below, EFW 19%, AC 35%, MVP 4.8 cm NORMAL # Polyhydramnios, mild (SDP 8.9 cm on 10/09/2024) * Early glucose screen (24-25 weeks). Patient prefers to check blood sugars q.i.d. for two weeks rather than do Glucola testing. * Repeat assessment of amniotic fluid volume with growth ultrasound: On 11/27/2024 see below. # Probable GDM - patient declined 1-h glucose screen, opted to check QID BS for 2 weeks * Blood sugar log reviewed: 2 elevated fasting, 10 elevated postprandial blood sugars. Patient declined nutrition referral. Will continue q.i.d. blood sugar monitoring. * Some increased postprandial values to dinner noted on 02/02/2025. The patient believes these are related to dietary factors (increased carbs/sweets). Discussed importance of tight blood sugar control. Patient declines induction of labor at 39-40 weeks. # Breast feeding * No definite plans for weaning son. Discussed tandem breast feeding. # Declines first trimester ultrasound for dating/viability Vaccinations: Covid: Declined Flu: Declined Tdap: Declined RSV: N/A Hgb: 01/26/25 GBS: 01/26/25 Imaging: * Level 2 US: 10/09/2024. Limited anatomy assessment performed at patient's request, no anomalies identified. EFW 13%, AC 33%, mild polyhydramnios (MVP 8.9 cm), placenta left lateral without previa, three-vessel cord, uterine fibroids: 4.9 x 4.1 x 4.4 cm right lateral wall lateral to cervix, and 7.1 x 4.9 x 4.2 cm right lateral wall. Neither fibroid appeared to be obstructive at this time. Recommend repeat ultrasound in 3-4 weeks to re-evaluate growth and amniotic fluid. Recommend evaluation for GDM at 24-25 weeks given finding of mild polyhydramnios. * 11/27/24 FU Polyhydramnios: Breech, SDP 3.8 cm. EFW 1232 g, 2 lb 11 oz, 9.3% c/w IUGR. BPD 84%, HC 49%, AC 11%, FL 4%. Umbilical artery S/D ratio: 2.8. (28-34wk <4.0) * 12/16/2024 MFM: EFW 1770 g or 3 lb 15 oz (19%), BPD 70%, HC 35%, AC 35%, FL 2%, MVP 4.8 cm. Normal! * 02/16/2025: AGNIESZKA 17.9 cm, SDP 5.8 cm, vertex, S/D 2.2 OB - Problem Based A/P Additional Plan (1) Pain during labor: Status: Acute Plan Expectant management. Patient desires no intervention, delayed cord clamping. GBS negative. Delivery/Labor/Induction Plan Plan: expectant management OB Exam Physical Exam Narrative: Physical exam: General: In active labor at 1st evaluation; re-evaluated Psych: Alert and oriented x3, full affect HEENT: Normocephalic, atraumatic, oropharynx benign Heart: Regular rate and rhythm, no murmur rub or gallop Lungs: Clear to auscultation bilaterally Abdomen: After of her baby, fundus is firm and at the umbilicus Lower extremities: No edema or erythema Pelvic exam: At my initial evaluation, she is pushing and separation of labia is noted. After of baby, second-degree perineal laceration is repaired tracing: Baseline appears to be 130 with minimal to moderate variability. At least 1 acceleration was noted. Intermittent monitoring was employed.
[2025-02-19] MEDS: LIDOCAINE 1 % PF 30 ML INJECTION (09:30)
--- NOTE | 2025-02-19 09:49 | W.PM.VAGDEL1 ---
Procedure Delivery date: 02/19/25 Procedure Done: [facility] [employer] Procedure Details: The patient is a 44 year-old G 2 P 1-0-0-1 admitted on 02/19/2025 at 41 Weeks, 4 Days gestation for labor.? Cervical exam on admission was anterior lip cm/100 % effaced/+1 station with membranes ruptured in vertex presentation.? Contractions were regular.? heart rate demonstrated baseline 130 bpm with minimal to moderate variability, positive accelerations, no visualized decelerations, but of a 20 minute strip was not obtained.? SROM had occurred at 5:00 a.m. with meconium-stained fluid. ? Labor Analgesia:? None ? Pitocin:? Now ? Labor onset:? 5:50 a.m. ? Complete:? 8:55 a.m. ? Pushing:? 8:55 a.m. ? heart tones during second stage were reassuring; intermittent monitoring was employed. ? At 9:15 a.m. a viable male delivered in vertex CHRISS presentation over small second-degree perineal laceration. The head delivered in CHRISS presentation and restituted to our OT. The shoulder did not deliver after gentle guidance of the head downward. Shoulder dystocia was diagnosed. Patient was repositioned in Miracle position, and the anterior shoulder was then delivered without any further difficulty. 20 seconds passed between the delivery of head and the shoulders. Infant was placed on maternal abdomen.? Cord was clamped and cut after it ceased to pulse.? Nose and mouth were bulb suctioned.? weight pending.? 8 at 1 minute and 9 at 5 minutes.? Shoulder dystocia: Yes, 20 seconds, as described above.? Nuchal cord: No. ? Placenta delivered spontaneously and complete at 9:29 a.m. with a 3 vessel cord. ? Mother and infant were stable after delivery. ? Lacerations:? Second-degree perineal, repaired with 3-0 Vicryl in the usual fashion after infiltration with 10 mL of 1% lidocaine. ? Blood loss: 150 mL. Blood loss measurement type: QBL ? Sponge and needles counts are correct.
--- NOTE | 2025-02-19 18:05 | P.DS_ITS ---
DS: Providers Provider Date Seen: 02/19/25 Date of admission: 02/19/25 08:40 Primary care physician: Jeffy Carbajal PA-C Admitting Clinician: Monse Denson MD Attending Physician on discharge: Monse Denson MD Date of Discharge: 02/19/25 DS: Diagnosis Discharge Diagnosis (1) Vaginal delivery: Status: Acute (2) Shoulder dystocia during labor and delivery, delivered: Status: Acute Exam Narrative: Exam Narrative: See exam from this morning's note Const: Vital Signs, click to edit/add: Vital Signs - 24 hr 02/19/25 08:47 02/19/25 08:50 02/19/25 09:30 Temperature Pulse Rate 70 Pulse Rate [Blood Pressure Cuff] Respiratory Rate Blood Pressure 132/86 Blood Pressure [Le ft Arm] Pulse Oximetry 79 L 97 02/19/25 09:45 02/19/25 10:00 02/19/25 10:15 Temperature Pulse Rate 68 75 74 Pulse Rate [Blood Pressure Cuff] Respiratory Rate Blood Pressure 131/62 117/78 123/78 Blood Pressure [Le ft Arm] Pulse Oximetry 02/19/25 10:29 02/19/25 10:46 02/19/25 10:59 Temperature Pulse Rate 65 68 77 Pulse Rate [Blood Pressure Cuff] Respiratory Rate Blood Pressure 125/79 123/71 122/60 Blood Pressure [Le ft Arm] Pulse Oximetry 02/19/25 11:14 02/19/25 15:25 02/19/25 15:25 Temperature Pulse Rate 78 75 Pulse Rate [Blood Pressure Cuff] Respiratory Rate Blood Pressure 123/68 121/62 Blood Pressure [Le ft Arm] Pulse Oximetry 02/19/25 15:30 Temperature 98.1 F Pulse Rate Pulse Rate [Blood Pressure Cuff] 75 Respiratory Rate 18 Blood Pressure Blood Pressure [Le ft Arm] 121/62 Pulse Oximetry OB - DS: Summary Hospital Course Hospital Course: The patient is a 44 year old G 2 now P 2-0-0-2 woman who is status post vaginal delivery at 41 weeks, 4 days gestation on 02/19/2025. She presented in transitional labor. She went on to have a vaginal delivery complicated by 22nd shoulder dystocia. Her infant is LGA, weighing 10 lb and 6 oz. She has requested early discharge today. Her bleeding but has been within normal limits and her vital signs have been normal. She intends to breastfeed. Peripartum Data delivery method: Vaginal Laceration description: Perineal - 2nd Degree Episiotomy description: None Procedures: Vaginal delivery with shoulder dystocia complications: none Infant Gender: Male Time Spent with Patient Time attestation: Total time spent providing and/or coordinating discharge services: Discharge Plan Discharge Disposition: Home, Self-Care Date of Admission: 02/19/25 08:40 Attending Provider on Discharge: Monse Denson Primary Care Provider: Jeffy Carbajal Condition: Stable Anticipated Discharge Date/Time: 02/19/25 18:02 Discharge Medications: New acetaminophen 500 mg Tablet 1,000 mg PO Q6H PRNQty: 0 0RF docusate sodium 100 mg Capsule 100 mg PO DAILY Qty: 0 0RF ibuprofen 600 mg Tablet 600 mg PO Q6H PRNQty: 0 0RF Lanolin (HPA) 100 % Cream 1 applic topical Q1H PRNQty: 0 0RF Continued multivitamin Tablet 1 tab PO QAM calcium carbonate 500 mg calcium (1,250 mg) tablet 500 mg PO BID cholecalciferol (vitamin D3) 50 mcg (2,000 unit) capsule 50 mcg PO QDAY magnesium 200 mg tablet 200 mg PO QDAY epinephrine [EpiPen] 0.3 mg/0.3 mL auto-injector 0.3 mg IM Q5-15M PRN (Reason: hypersensitivity reaction) Qty: 2 1RF Rx Instructions: do not exceed 3 doses per episode Discontinued (DME) Test Strips Misc See Rx Instructions .MEDSUPPLY Qty: 100 3RF Rx Instructions: Test blood sugar 4 times daily. (DME) lancets Misc See Rx Instructions .MEDSUPPLY Qty: 100 3RF Rx Instructions: Test blood sugar 4 times daily. (DME) Blood Glucose Meter Misc See Rx Instructions .MEDSUPPLY Qty: 1 0RF Rx Instructions: As directed Discharge Orders: Discharge Order (Routine); Ordered 02/19/25 Ordered By: Monse Denson Patient Education: OB Over the Counter Medication Information, OB Vaginal/Breast Feeding Discharge Diet: Regular Follow Up Appointments: [facility] [Provider Group] Jeffy Carbajal, PAJorgeC [Primary Care Provider, Family Practice] Forms: bookletmobile Info Instructions
== END 2025-02-19 18:50 | disposition home or self-care (01) | DRG 807 ==
LOC: OB OUT 08:41 → OB 08:41
PROVIDERS: Admitting Provider Obstetrics & Gynecology; PCP Physician Assistant Medical; Visit Provider Obstetrics & Gynecology
DX: O48.0 Post-term pregnancy (principal); Z37.0 Single live birth; O77.0 Labor and delivery complicated by meconium in amniotic fluid; O70.1 Second degree perineal laceration during delivery; O66.0 Obstructed labor due to shoulder dystocia; O36.63X0 Maternal care for excessive fetal growth, third trimester, not applicable or unspecified; O24.420 Gestational diabetes mellitus in childbirth, diet controlled; Z3A.41 41 weeks gestation of pregnancy
CPT/HCPCS: 86592; G0463; A9270; J2003